=== PATIENT | female | born 1995 | race Two or more races ===

== ENCOUNTER 2017-09-15 23:08 | Observation (INO) | payer MEDICAID ==
[2017-09-16 01:12] LABS: APPEARANCE,URINE SLIGHTLY-CLOUDY; BILIRUBIN,URINE NEGATIVE (NEGATIVE); COLOR,URINE YELLOW; GLUCOSE, URINE NEGATIVE (NEGATIVE); KETONES,URINE 80 mg/dL (NEGATIVE); LEUKOCYTE ESTERASE,URINE NEGATIVE (NEGATIVE); NITRITE,URINE NEGATIVE (NEGATIVE); PROTEIN,URINE NEGATIVE (NEGATIVE); URINE SPECIFIC GRAVITY 1.023; UROBILINOGEN,URINE NEGATIVE mg/dL (<2.0)
[2017-09-16] MEDS ORDERED: RINGERS SOLUTION,LACTATED 1,000 ML IV ONE (01:33)
[2017-09-16 01:54] LABS: HEMATOCRIT 27.2 % (36.0-47.0); HEMOGLOBIN 8.5 g/dL (12.0-15.5); MEAN CORPUSCULAR HEMOGLOBIN 22.9 pg (27.0-33.4); MEAN CORPUSCULAR HGB CONC 31.4 g/dL (32.0-36.0); MEAN CORPUSCULAR VOLUME 73 fl (80-97); PLATELET COUNT 254 10^3/uL (150-450); RED BLOOD COUNT 3.73 10^6/uL (3.72-5.28); RED CELL DISTRIBUTION WIDTH 16.5 % (11.5-14.0); WHITE BLOOD COUNT 11.4 10^3/uL (4.0-10.5)
[2017-09-16 02:07] LABS: ALANINE AMINOTRANSFERASE 35 U/L (9-52); ALBUMIN 3.2 g/dL (3.5-5.0); ALKALINE PHOSPHATASE 106 U/L (38-126); ANION GAP 9 (5-19); ASPARTATE AMINO TRANSFERASE 29 U/L (14-36); BILIRUBIN,DIRECT 0.1 mg/dL (0.0-0.4); BILIRUBIN,TOTAL 0.4 mg/dL (0.2-1.3); BLOOD UREA NITROGEN 6 mg/dL (7-20); CALCIUM 8.7 mg/dL (8.4-10.2); CARBON DIOXIDE 19 mmol/L (22-30); CHLORIDE 107 mmol/L (98-107); GLUCOSE 94 mg/dL (75-110); POTASSIUM 3.7 mmol/L (3.6-5.0); TOTAL PROTEIN 5.9 g/dL (6.3-8.2)
[2017-09-16] MEDS ORDERED: ACETAMINOPHEN 325 MG TABLET ONE ×2 (02:25→06:21)
[2017-09-16] MEDS ORDERED: CEFAZOLIN INJ 1 GM VIAL ONE (02:26)
[2017-09-16] MEDS ORDERED: CEFTRIAXONE INJ 1000 MG VIAL IV ONE (02:27)
[2017-09-16 02:34] LABS: ABSOLUTE LYMPHOCYTES# (MANUAL) 0.3 10^3/uL (0.5-4.7); ABSOLUTE MONOCYTES # (MANUAL) 1.3 10^3/uL (0.1-1.4); ABSOLUTE NEUTROPHILS# (MANUAL) 9.8 10^3/uL (1.7-8.2); BAND NEUTROPHILS % (MANUAL) 4 % (3-5); BASOPHILS % (MANUAL) 0 % (0-2); EOSINOPHILS % (MANUAL) 0 % (0-6); LYMPHOCYTES % (MANUAL) 3 % (13-45); MONOCYTES % (MANUAL) 11 % (3-13); SEGMENTED NEUTROPHILS % (MAN) 82 % (42-78); TOTAL CELLS COUNTED 100
[2017-09-16] MEDS: ACETAMINOPHEN 325 MG TABLET PO PRN ×4 (02:35→17:26)
[2017-09-16 02:36] LABS: ANISOCYTOSIS 1+; HYPOCHROMASIA 1+; OVALOCYTES SLIGHT; POIKILOCYTOSIS SLIGHT; POLYCHROMASIA SLIGHT; TOXIC GRANULATION 2+
[2017-09-16 02:37] LABS: PLATELET COMMENT ADEQUATE
[2017-09-16] MEDS ORDERED: CEFAZOLIN 1 GM/D5W RTU 1 GM/50 ML RTUPB IV PRN (02:45)
[2017-09-16] MEDS ORDERED: GENTAMICIN SULFATE 90 MG in DEXTROSE 5%-WATER 100 ML IV ONE (02:45)
[2017-09-16] MEDS ORDERED: CEFTRIAXONE 1 GM/D5W RTU 1 GM/50 ML RTUPB IV ONE (03:00)
--- NOTE | 2017-09-16 03:18 | RADIOLOGY REPORT (SQ) ---
EXAM DESCRIPTION: U/S OB 14+ TA/1 GEST W/DOPPLER CLINICAL HISTORY: 22 years Female, and cramping COMPARISON: None. TECHNIQUE: Complete third trimester obstetrical ultrasound performed. FINDINGS: measurements: heart rate of 165 bpm. BPD: 8.69 cm compatible with estimated gestational age of 35 weeks, 1 day. HC: 31.01 compatible with estimated gestational age of 34 weeks, 5 days. AC: 32.96 cm compatible with estimated gestational age of 36 weeks, 6 days. FL: 6.46 cm compatible with estimated gestational age of 33 weeks, 2 days. Estimated gestational age is 35 weeks, 0 days. Estimated delivery date of 10/21/2017. Estimated weight of 2707 g, 6 lbs. 0 oz. Estimated weight 90th percentile. HC/AC: 0.94 which is slightly low. FL/BPD: 74.3 FL/AC: 20.8 FL/AC: 19.6 which is also low. PATRICK of 17.2. Placenta: Posterior presentation is breech. organ survey. Four-chamber heart, three-vessel cord, cord insertion, bladder, left kidney, and extremities are within normal limits. Visualized portions of the spine within normal limits however a 70 loop in the axial plane is not performed. Exclusion of spina bifida is not possible based on these images. The lateral ventricles, cerebellum, cisterna magna are not identified on this study. Mild dilatation of the right renal pelvis measuring 4.8 mm. Cervical length of 4.9 cm. IMPRESSION: 1. Single live intrauterine in breech presentation with estimated gestational age of 35 weeks, 0 days. heart rate of 165 bpm. 2. Mild right renal pelviectasis without other definite evidence of obstruction. Continued follow-up recommended. 3. The intracranial measurement are not well evaluated on this study. 4. Mildly low HC/AC ratio and FL/AC ratio. Continued follow-up recommended. 5. PATRICK of 17.2. This is upper limits of normal.
[2017-09-16] MEDS ORDERED: CEFTRIAXONE INJ 1000 MG VIAL ONE (03:29)
[2017-09-16] MEDS ORDERED: GENTAMICIN SULFATE INJ 80 MG/2 ML VIAL IV SCH (04:00)
[2017-09-16] MEDS ORDERED: GENTAMICIN SULFATE INJ 80 MG/2 ML VIAL ONE (04:13)
[2017-09-16] MEDS ORDERED: CEFTRIAXONE INJ 1000 MG VIAL IM SCH (06:00)
--- NOTE | 2017-09-16 06:49 | Non Stress Test Report ---
Non Stress Test Datetime Report Generated by CPN: 09/16/2017 06:49 DEMOGRAPHIC EGA NST: 32.1 INDICATION Indication for Study: Pyelonephritis Indication for Study (NST) Other: ? pyeloneohritis URINE RESULTS Urine Protein, NST: Negative Urine Ketones - NST: Positive Urine Glucose - NST: Negative Urine Blood - NST: Negative MONITORING Monitor Explained: Monitor Explained; Test Explained; Patient Verbalized Understanding Time on Monitor: 09/16/2017 05:55 Time off Monitor: 09/16/2017 06:35 NST Duration: 40 NST INTERVENTIONS NST Interventions: PO Hydration; IV Fluids; Reposition Patient Physician Notified NST: Dr. Trimble BABY A: [id number] BABY A Movement : Present Contraction Frequency : none noted FHR Baseline : 145 Accelerations : 15X15 Decelerations : None Variability : Moderate 6-25bpm NST Review: Meets Criteria for Reactive NST NST Review and Verified By : [employer] NST Results: Reactive NST REPORT Report Trigger: Send Report
[2017-09-16] MEDS: RINGERS SOLUTION,LACTATED 1,000 ML IV PRN (06:52)
--- NOTE | 2017-09-16 08:16 | L&D Progress Notes ---
PROGRESS NOTES Datetime Report Generated by CPN: 09/16/2017 08:16 PROGRESS NOTE Impression Other: IUP at 32+ weeks. Pyelonephritis/Maternal pyrexia Plan: Continue Present Management Comment: IUP at 32+ weeks. Afebrile this morning. Pain improved. Sleeping comfortably. Awaiting culture results. Continue on IV antibiotics. Plan on transition to PO antibiotics and discharge planning. SIGNATURE SIGNATURE: [id number] SIGNATURE: [id number] Signature: with User ID: [email or web address]
--- NOTE | 2017-09-16 09:55 | PDOC H&P ---
History of Present Illness Admission Date/PCP: 09/16/17 02:28 AKASH LEWIS MD Patient complains of: c/o nausea and vomiting and back pain, brought in by EMS, 26+1 History of Present Illness: TRENT CLAROS is a 22 year old female Past Medical History Gynecological Infection: No 1 Baby 1 Male Year: 2,016 Weeks: 40 Weight: 4.536 kg Delivery: : Low Cervical, Transverse 1 Baby 2 Male Year: 2,014 Weeks: 40 Weight: 2.722 kg Delivery: Spontaneous Vaginal Delivery Past Surgical History Past Surgical History: Reports: None, Section Social History Information Source: Patient Lives with: Family Smoking Status: Never Smoker Frequency of Alcohol Use: None Hx Recreational Drug Use: No Hx Prescription Drug Abuse: No Family History Family History: None Parental Family History Reviewed: Yes Children Family History Reviewed: Yes Sibling(s) Family History Reviewed.: Yes Medication/Allergy Home Medications: No Home Medications 09/16/17 Allergies/Adverse Reactions: No Known Allergies Allergy (Verified 09/16/17 01:59) Physical Exam - Physical Exam Vital Signs: Intake & Output 09/15/17 09/16/17 09/17/17 06:59 06:59 06:59 Weight 127.4 kg General appearance: PRESENT: no acute distress Result Laboratory Results: 09/16/17 01:38 09/16/17 01:38 09/16/17 09/16/17 09/16/17 00:45 01:38 01:38 WBC 11.4 H RBC 3.73 Hgb 8.5 L Hct 27.2 L MCV 73 L MCH 22.9 L MCHC 31.4 L RDW 16.5 H Plt Count 254 Seg Neutrophils % Not Reportable Lymphocytes % Not Reportable Monocytes % Not Reportable Eosinophils % Not Reportable Basophils % Not Reportable Absolute Neutrophils Not Reportable Absolute Lymphocytes Not Reportable Absolute Monocytes Not Reportable Absolute Eosinophils Not Reportable Absolute Basophils Not Reportable Sodium 135.0 L Potassium 3.7 Chloride 107 Carbon Dioxide 19 L Anion Gap 9 BUN 6 L Creatinine 0.50 L Est GFR ( Amer) > 60 Est GFR (Non-Af Amer) > 60 Glucose 94 Calcium 8.7 Total Bilirubin 0.4 AST 29 ALT 35 Alkaline Phosphatase 106 Total Protein 5.9 L Albumin 3.2 L Urine Color YELLOW Urine Appearance SLIGHTLY-CLOUDY Urine pH 6.0 Ur Specific [place] 1.023 Urine Protein NEGATIVE Urine Glucose (UA) NEGATIVE Urine Ketones 80 H Urine Blood NEGATIVE Urine Nitrite NEGATIVE Ur Leukocyte Esterase NEGATIVE Urine WBC (Auto) 0 Urine RBC (Auto) 0 Impressions: Obstetrics Ultrasound 09/16/17 00:00 IMPRESSION: 1. Single live intrauterine in breech presentation with estimated gestational age of 35 weeks, 0 days. heart rate of 165 bpm. 2. Mild right renal pelviectasis without other definite evidence of obstruction. Continued follow-up recommended. 3. The intracranial measurement are not well evaluated on this study. 4. Mildly low HC/AC ratio and FL/AC ratio. Continued follow-up recommended. 5. PATRICK of 17.2. This is upper limits of normal. Assessment & Plan - Diagnosis (1) Pyelonephritis affecting in second trimester Is this a current diagnosis for this admission?: Yes - Plan Summary Plan Summary: observation, antibiotics
[2017-09-16] MEDS: CEFAZOLIN 1 GM/D5W RTU 1 GM/50 ML RTUPB IV SCH ×3 (12:15→23:17)
[2017-09-17 04:17] VITALS: BP 127/65
[2017-09-17] MEDS: CEFAZOLIN 1 GM/D5W RTU 1 GM/50 ML RTUPB IV SCH (06:10)
[2017-09-17] MEDS: RINGERS SOLUTION,LACTATED 1,000 ML IV PRN (06:10)
--- NOTE | 2017-09-17 08:28 | PDOC PROGRESS REPORT ---
Subjective Progress Note for:: 09/17/17 Subjective:: pt feels better but has a cold Reason For Visit: LABOR CHECK/ Physical Exam - Physical Exam Vital Signs: Temp Pulse Resp BP Pulse Ox 98.2 F 110 H 18 127/65 H 100 09/17/17 04:48 09/17/17 04:48 09/17/17 04:48 09/17/17 04:48 09/17/17 04:48 Intake & Output 09/16/17 09/17/17 09/18/17 06:59 06:59 06:59 Intake Total 1240 Output Total 450 Balance 790 Weight 127.4 kg General appearance: PRESENT: no acute distress Respiratory exam: PRESENT: clear to auscultation irena GI/Abdominal exam: PRESENT: soft Neurological exam: PRESENT: alert Result Laboratory Results: 09/16/17 01:38 09/16/17 01:38 Impressions: Obstetrics Ultrasound 09/16/17 00:00 IMPRESSION: 1. Single live intrauterine in breech presentation with estimated gestational age of 35 weeks, 0 days. heart rate of 165 bpm. 2. Mild right renal pelviectasis without other definite evidence of obstruction. Continued follow-up recommended. 3. The intracranial measurement are not well evaluated on this study. 4. Mildly low HC/AC ratio and FL/AC ratio. Continued follow-up recommended. 5. PATRICK of 17.2. This is upper limits of normal. Assessment & Plan - Diagnosis (1) Pyelonephritis affecting in second trimester Is this a current diagnosis for this admission?: Yes - Plan Summary Plan Summary: d/c f/u regular appointment or prn home antibiotics
== END 2017-09-17 10:35 | disposition home or self-care (01) ==
LOC: LC 09-16 00:47 → LR 09-16 02:28 → 2S 09-16 09:07
PROVIDERS: ADMIT Obstetrics & Gynecology Gynecology; ATTEND Obstetrics & Gynecology Gynecology
PROC: 4A0HXCZ Measurement of Products of Conception, Cardiac Rate, External Approach (ICD-10-PCS; principal; 2017-09-16)
DX: O23.02 Infections of kidney in pregnancy, second trimester (principal); Z3A.26 26 weeks gestation of pregnancy; O32.1XX0 Maternal care for breech presentation, not applicable or unspecified
CPT/HCPCS: 59025; 36415; 87086; 85025; 80053; 81001; 76805; 93976; G0378 ×2; J3490; J0690 ×3; J1580; J0696; J7120

== ENCOUNTER 2017-11-02 10:57 | Outpatient (CLI) | payer MEDICAID ==
[~2017-11-02 10:57] MED LIST: ACETAMINOPHEN 325 MG TABLET PO PRN; DIPHENHYDRAMINE HCL 50 MG/ML VIAL IV PRN; IRON DEXTRAN COMPLEX 25 MG in SYRINGE, DISPOSABLE, 1 EACH IV PRN; IRON DEXTRAN COMPLEX 975 MG in NORMAL SALINE 1000 ML 1,000 ML IV PRN; NORMAL SALINE 250 ML IV PRN
[2017-11-02 11:50] VITALS: BP 142/56
== END 2017-11-02 16:58 | disposition home or self-care (01) ==
LOC: II 10:57 → 5TH 11:01 → II 16:58
PROVIDERS: ATTEND Internal Medicine Hematology & Oncology
PROC: 3E033GC Introduction of Other Therapeutic Substance into Peripheral Vein, Percutaneous Approach (ICD-10-PCS; principal; 2017-11-02)
DX: O99.013 Anemia complicating pregnancy, third trimester (principal); D64.9 Anemia, unspecified
CPT/HCPCS: 96365; 96366; 96374; 96375; J3490 ×2; J1200; J1750; J7030

== ENCOUNTER 2017-12-21 21:15 | Emergency (ER) | payer MEDICAID ==
[2017-12-21 22:33] LABS: ABSOLUTE EOSINOPHILS # (AUTO) 0.1 10^3/uL (0.0-0.6); ABSOLUTE LYMPHOCYTES (AUTO) 1.4 10^3/uL (0.5-4.7); ABSOLUTE MONOCYTES (AUTO) 0.4 10^3/uL (0.1-1.4); ABSOLUTE NEUT (AUTO) 7.3 10^3/uL (1.7-8.2); BASOPHILS % (AUTO) 0.3 % (0-2); EOSINOPHILS % (AUTO) 1.2 % (0-6); HEMATOCRIT 36.8 % (36.0-47.0); HEMOGLOBIN 11.8 g/dL (12.0-15.5); LYMPHOCYTES % (AUTO) 14.8 % (13-45); MEAN CORPUSCULAR HEMOGLOBIN 25.1 pg (27.0-33.4); MEAN CORPUSCULAR HGB CONC 32.1 g/dL (32.0-36.0); MEAN CORPUSCULAR VOLUME 78 fl (80-97); MONOCYTES % (AUTO) 4.7 % (3-13); PLATELET COUNT 265 10^3/uL (150-450); TOTAL CELLS COUNTED % (AUTO) 100 %; WHITE BLOOD COUNT 9.2 10^3/uL (4.0-10.5)
[2017-12-21 22:43] LABS: APPEARANCE,URINE CLOUDY; BILIRUBIN,URINE NEGATIVE (NEGATIVE); COLOR,URINE YELLOW; GLUCOSE, URINE NEGATIVE (NEGATIVE); KETONES,URINE NEGATIVE (NEGATIVE); LEUKOCYTE ESTERASE,URINE TRACE (NEGATIVE); NITRITE,URINE NEGATIVE (NEGATIVE); PROTEIN,URINE 30 mg/dL (NEGATIVE); URINE SPECIFIC GRAVITY 1.027; UROBILINOGEN,URINE NEGATIVE mg/dL (<2.0)
[2017-12-21 22:49] LABS: ALANINE AMINOTRANSFERASE 24 U/L (9-52); ALBUMIN 4.4 g/dL (3.5-5.0); ALKALINE PHOSPHATASE 77 U/L (38-126); ANION GAP 13 (5-19); ASPARTATE AMINO TRANSFERASE 19 U/L (14-36); BILIRUBIN,DIRECT 0.2 mg/dL (0.0-0.4); BILIRUBIN,TOTAL 0.3 mg/dL (0.2-1.3); BLOOD UREA NITROGEN 15 mg/dL (7-20); CALCIUM 9.4 mg/dL (8.4-10.2); CARBON DIOXIDE 25 mmol/L (22-30); CHLORIDE 104 mmol/L (98-107); GLUCOSE 98 mg/dL (75-110); POTASSIUM 3.7 mmol/L (3.6-5.0); SODIUM 142.2 mmol/L (137-145); TOTAL PROTEIN 7.4 g/dL (6.3-8.2)
[2017-12-21 22:54] LABS: ANISOCYTOSIS 3+; HYPOCHROMASIA SLIGHT; OVALOCYTES SLIGHT; PLATELET COMMENT ADEQUATE; POIKILOCYTOSIS 1+; TOXIC GRANULATION SLIGHT
[2017-12-22] MEDS ORDERED: ONDANSETRON HCL INJ/PF 4 MG/2 ML SDV IV ONE (00:14)
--- NOTE | 2017-12-22 00:15 | ER Document Report ---
ED General - General Chief Complaint: Nausea/Vomiting/Diarrhea Stated Complaint: VOMITING Time Seen by Provider: 12/21/17 23:43 Notes: Patient is a 22-year-old female presents with complaint of vomiting and diarrhea. She says she has had intermittent mild crampy abdominal pain. She said that she did just recently start her menstrual period. She had an incident 1 month ago. She is not currently breast-feeding. No fevers. No dysuria. No recent sick contacts. No recent antibiotic usage. No travel outside the country. No other complaints at this time. TRAVEL OUTSIDE OF THE [place] IN LAST 30 DAYS: No - Related Data Allergies/Adverse Reactions: No Known Allergies Allergy (Verified 09/16/17 01:59) Past Medical History - Social History Smoking Status: Never Smoker Chew tobacco use (# tins/day): No Frequency of alcohol use: None Drug Abuse: None Family History: None Patient has suicidal ideation: No Patient has homicidal ideation: No Renal/ Medical History: Denies: Hx Peritoneal Dialysis Past Surgical History: Reports: Hx Section - x2 Review of Systems - Review of Systems Notes: My Normal Review Basic REVIEW OF SYSTEMS: CONSTITUTIONAL : Denies fever, chills, or sweats. Denies recent illness. RESPIRATORY: Denies cough, cold, or chest congestion. Denies shortness of breath, difficulty breathing, or wheezing. GASTROINTESTINAL: Intermittent crampy abdominal pain. Some vomiting. Some diarrhea. Blood in stool. GENITOURINARY: Denies difficulty urinating, painful urination, burning, frequency, or blood in urine. FEMALE GENITOURINARY: no abnormal or irregular periods. LMP: Currently on menstrual period. MUSCULOSKELETAL: Denies neck or back pain or joint pain or swelling. SKIN: Denies rash or skin lesions. NEUROLOGICAL: Denies altered mental status or loss of consciousness. Denies headache. Denies weakness or paralysis or loss of use of either side. Denies problems with gait or speech. Denies sensory or motor loss. ALL OTHER SYSTEMS REVIEWED AND NEGATIVE. Physical Exam - Vital signs Vitals: Temp Pulse Resp BP Pulse Ox 99 F 128 H 18 134/85 H 98 12/21/17 21:15 12/21/17 21:15 12/21/17 21:15 12/21/17 21:15 12/21/17 21:15 - Notes Notes: General Appearance: Well nourished, alert, cooperative, no acute distress, no obvious discomfort. Vitals: reviewed, See vital signs table. Eyes: PERRL, EOMI, Conjuctiva clear Mouth: decreasd moisture Throat: No tonsillar inflammation, No airway obstruction, No lymphadenopathy Lungs: No wheezing, No rales, No rhonci, No accessory muscle use, good air exchange bilaterally. Heart: tachycardiac l rate, Regular rythm, No murmur, no rub Abdomen: Normal BS, soft, No rigidity, No abdominal tenderness, No guarding, no rebound, Extremities: strength 5/5 in all extremities, good pulses in all extremities, no swelling or tenderness in the extremities, no edema. Skin: warm, dry, appropriate color, no rash Neuro: speech clear, oriented x 3, normal affect, responds appropriately to questions. Course - Re-evaluation Re-evalutation: 12/22/17 02:24 After the IV fluids and Zofran patient is feeling improved. She says she no longer feels nauseous. We will recheck her vital signs and make sure heart rate has improved. 12/22/17 05:37 Patient's vital signs have improved. She looks and feels well. She will be discharged home. I encouraged her return to ER immediately if she has recurrent vomiting and diarrhea, fevers, any abdominal pain, or if she feels unwell. Patient agrees with plan and will be discharged home. Dictation of this chart was performed using voice recognition software; therefore, there may be some unintended grammatical errors. - Vital Signs Vital signs: Temp Pulse Resp BP Pulse Ox 98.5 F 93 20 126/68 H 99 12/22/17 02:45 12/22/17 02:45 12/22/17 02:45 12/22/17 02:45 12/22/17 02:45 - Laboratory Result Diagrams: 12/21/17 22:15 12/21/17 22:15 Laboratory results interpreted by me: 12/21/17 12/21/17 22:15 22:15 Hgb 11.8 L MCV 78 L MCH 25.1 L RDW 24.0 H Seg Neutrophils % 79.0 H Urine Protein 30 H Urine Blood LARGE H Ur Leukocyte Esterase TRACE H Discharge - Discharge Clinical Impression: Vomiting and diarrhea Disposition: HOME, SELF-CARE Additional Instructions: Please take the Zofran as 1 tab every 4 hours as needed for nausea and vomiting. Please eat a very bland diet over the next 48 hours and drink plenty of non-caffeinated liquids. please follow up with your doctor in 1-2 days for reevaluation or return to the ER for revaluation if you continue to have symptoms after 48 hours. Return to the ER immediately if you have fevers, abdominal pain, intractable vomiting, or bloody stools. Prescriptions: Ondansetron [Zofran Odt 4 mg Tablet] 1 tab PO Q4H PRN #15 tab.rapdis PRN Reason: For Nausea/Vomiting Forms: Return to Work
[2017-12-22] MEDS: NORMAL SALINE 1000 ML 1,000 ML IV PRN ×2 (00:47→02:42)
[2017-12-22] MEDS ORDERED: ONDANSETRON 4 MG TAB.RAPDIS PO ONE (02:24)
[2017-12-22 02:52] VITALS: BP 126/68
== END 2017-12-22 03:12 | disposition home or self-care (01) ==
LOC: ER 21:15
DX: R11.2 Nausea with vomiting, unspecified (principal); R19.7 Diarrhea, unspecified
CPT/HCPCS: 99284; 96361; 96374; 36415; 83735; 84703; 85025; 80053; 81001; S0119; J2405; J7030

== ENCOUNTER 2019-05-07 00:08 | Emergency (ER) | payer MEDICAID ==
[2019-05-07 01:22] LABS: ABSOLUTE EOSINOPHILS # (AUTO) 0.2 10^3/uL (0.0-0.6); ABSOLUTE LYMPHOCYTES (AUTO) 1.2 10^3/uL (0.5-4.7); ABSOLUTE MONOCYTES (AUTO) 0.6 10^3/uL (0.1-1.4); ABSOLUTE NEUT (AUTO) 5.3 10^3/uL (1.7-8.2); BASOPHILS % (AUTO) 0.5 % (0-2); EOSINOPHILS % (AUTO) 2.1 % (0-6); HEMATOCRIT 39.9 % (36.0-47.0); HEMOGLOBIN 13.2 g/dL (12.0-15.5); LYMPHOCYTES % (AUTO) 16.1 % (13-45); MEAN CORPUSCULAR HEMOGLOBIN 27.7 pg (27.0-33.4); MEAN CORPUSCULAR HGB CONC 32.9 g/dL (32.0-36.0); MEAN CORPUSCULAR VOLUME 84 fl (80-97); PLATELET COUNT 251 10^3/uL (150-450); RED BLOOD COUNT 4.75 10^6/uL (3.72-5.28); RED CELL DISTRIBUTION WIDTH 13.4 % (11.5-14.0); SEGMENTED NEUTROPHILS % (AUTO) 73.3 % (42-78); TOTAL CELLS COUNTED % (AUTO) 100 %; WHITE BLOOD COUNT 7.3 10^3/uL (4.0-10.5)
[2019-05-07 01:33] LABS: COLOR,URINE STRAW; URINE SPECIFIC GRAVITY 1.021
[2019-05-07 01:34] LABS: APPEARANCE,URINE CLEAR; BILIRUBIN,URINE NEGATIVE (NEGATIVE); GLUCOSE, URINE NEGATIVE (NEGATIVE); KETONES,URINE NEGATIVE (NEGATIVE); LEUKOCYTE ESTERASE,URINE NEGATIVE (NEGATIVE); NITRITE,URINE NEGATIVE (NEGATIVE); PROTEIN,URINE NEGATIVE (NEGATIVE); UROBILINOGEN,URINE NEGATIVE mg/dL (<2.0)
[2019-05-07 01:39] LABS: ALBUMIN 4.4 g/dL (3.5-5.0); ALKALINE PHOSPHATASE 82 U/L (38-126); ANION GAP 9 (5-19); ASPARTATE AMINO TRANSFERASE 22 U/L (14-36); BILIRUBIN,DIRECT 0.1 mg/dL (0.0-0.4); BILIRUBIN,TOTAL 0.4 mg/dL (0.2-1.3); BLOOD UREA NITROGEN 13 mg/dL (7-20); CALCIUM 9.3 mg/dL (8.4-10.2); CARBON DIOXIDE 27 mmol/L (22-30); CHLORIDE 102 mmol/L (98-107); GLUCOSE 104 mg/dL (75-110); POTASSIUM 3.8 mmol/L (3.6-5.0); TOTAL PROTEIN 7.2 g/dL (6.3-8.2)
[2019-05-07] MEDS ORDERED: ACETAMINOPHEN 325 MG TABLET PO ONE (02:45)
[2019-05-07] MEDS ORDERED: MAG HYDROX/AL HYDROX/SIMETH SUSP 30 ML UDCUP PO ONE (04:31)
[2019-05-07] MEDS ORDERED: LIDOCAINE 2% VISCOUS SOLN 20 ML UDCUP PO ONE (04:31)
[2019-05-07] MEDS ORDERED: METOCLOPRAMIDE HCL ORAL SOLN 10 MG/10 ML UDCUP PO ONE (04:31)
--- NOTE | 2019-05-07 04:34 | ER Document Report ---
ED GI/ - General Chief Complaint: Abdominal Pain Stated Complaint: ABDOMINAL PAIN Time Seen by Provider: 05/07/19 03:20 Notes: Patient is a 23-year-old female presents to the emergency department for epigastric abdominal pain for the last 24 hours. Patient states she did vomit over 3 times and has had over 5 episodes of diarrhea. Patient's denying any blood in either her emesis or stool. Patient's denying any fevers, dysuria, vaginal discharge. Patient denies any medical problems, denies taking any daily medications, denies any allergies, last menstrual cycle 03/23/2019 Patient voices she was initially also complaining of a generalized headache. medical staff coordinator has used protocol and given the patient Tylenol, upon my assessment patient states she no longer has a headache. TRAVEL OUTSIDE OF THE [place] IN LAST 30 DAYS: No - Related Data Allergies/Adverse Reactions: iron Allergy (Verified 05/07/19 03:07) Past Medical History - General Information source: Patient - Social History Smoking Status: Never Smoker Frequency of alcohol use: None Drug Abuse: None Family History: None Patient has suicidal ideation: No Patient has homicidal ideation: No Renal/ Medical History: Denies: Hx Peritoneal Dialysis Past Surgical History: Reports: Hx Section - x2 Review of Systems - Review of Systems Constitutional: denies: Fever EENT: No symptoms reported Cardiovascular: No symptoms reported Respiratory: No symptoms reported Gastrointestinal: See HPI Genitourinary: No symptoms reported Female Genitourinary: No symptoms reported Musculoskeletal: No symptoms reported Skin: No symptoms reported Hematologic/Lymphatic: No symptoms reported Neurological/Psychological: See HPI Physical Exam - Vital signs Vitals: Temp Pulse Resp BP Pulse Ox 98.1 F 93 22 H 141/93 H 97 05/07/19 00:35 05/07/19 00:35 05/07/19 00:35 05/07/19 00:35 05/07/19 00:35 - Notes Notes: GENERAL: Alert, interacts well. No acute distress. HEAD: Normocephalic, atraumatic. EYES: Pupils equal, round, and reactive to light. Extraocular movements intact. ENT: Oral mucosa moist, tongue midline. NECK: Full range of motion. Supple. Trachea midline. LUNGS: Clear to auscultation bilaterally, no wheezes, rales, or rhonchi. No respiratory distress. HEART: Regular rate and rhythm. No murmur ABDOMEN: Soft, right upper quadrant abdominal pain noted, epigastric abdominal pain noted. Non-distended. Bowel sounds present in all 4 quadrants. No right lower abdominal pain noted, no left upper or lower abdominal pain noted. EXTREMITIES: Moves all 4 extremities spontaneously. No edema, normal radial and dorsalis pedis pulses bilaterally. No cyanosis. BACK: no cervical, thoracic, lumbar midline tenderness. No saddle anesthesia, normal distal neurovascular exam. No CVA tenderness noted bilaterally. NEUROLOGICAL: Alert and oriented x3. Normal speech. cranial nerves II through XII grossly intact. PSYCH: Normal affect, normal mood. SKIN: Warm, dry, normal turgor. No rashes or lesions noted. Course - Re-evaluation Re-evalutation: 05/07/19 06:08 Laboratory 05/07/19 05/07/19 05/07/19 00:14 00:14 01:10 WBC 7.3 RBC 4.75 Hgb 13.2 Hct 39.9 MCV 84 MCH 27.7 MCHC 32.9 RDW 13.4 Plt Count 251 Lymph % (Auto) 16.1 Major % (Auto) 8.0 Eos % (Auto) 2.1 Baso % (Auto) 0.5 Absolute Neuts (auto) 5.3 Absolute Lymphs (auto) 1.2 Absolute Monos (auto) 0.6 Absolute Eos (auto) 0.2 Absolute Basos (auto) 0.0 Seg Neutrophils % 73.3 Sodium Potassium Chloride Carbon Dioxide Anion Gap BUN Creatinine Est GFR ( Amer) Est GFR (MDRD) Non-Af Glucose Calcium Total Bilirubin Direct Bilirubin Neonat Total Bilirubin Neonat Direct Bilirubin Neonat Indirect Bili AST ALT Alkaline Phosphatase Total Protein Albumin Lipase Urine Color STRAW Urine Appearance CLEAR Urine pH 6.0 Ur Specific [place] 1.021 Urine Protein NEGATIVE Urine Glucose (UA) NEGATIVE Urine Ketones NEGATIVE Urine Blood NEGATIVE Urine Nitrite NEGATIVE Urine Bilirubin NEGATIVE Urine Urobilinogen NEGATIVE Ur Leukocyte Esterase NEGATIVE Urine WBC (Auto) 1 Urine RBC (Auto) 1 Squamous Epi Cells Auto 9 Urine Mucus (Auto) MANY Urine Ascorbic Acid NEGATIVE Urine HCG, Qual NEGATIVE 05/07/19 01:10 WBC RBC Hgb Hct MCV MCH MCHC RDW Plt Count Lymph % (Auto) Major % (Auto) Eos % (Auto) Baso % (Auto) Absolute Neuts (auto) Absolute Lymphs (auto) Absolute Monos (auto) Absolute Eos (auto) Absolute Basos (auto) Seg Neutrophils % Sodium 137.7 Potassium 3.8 Chloride 102 Carbon Dioxide 27 Anion Gap 9 BUN 13 Creatinine 0.59 Est GFR ( Amer) > 60 Est GFR (MDRD) Non-Af > 60 Glucose 104 Calcium 9.3 Total Bilirubin 0.4 Direct Bilirubin 0.1 Neonat Total Bilirubin Not Reportable Neonat Direct Bilirubin Not Reportable Neonat Indirect Bili Not Reportable AST 22 ALT 23 Alkaline Phosphatase 82 Total Protein 7.2 Albumin 4.4 Lipase 39.4 Urine Color Urine Appearance Urine pH Ur Specific [place] Urine Protein Urine Glucose (UA) Urine Ketones Urine Blood Urine Nitrite Urine Bilirubin Urine Urobilinogen Ur Leukocyte Esterase Urine WBC (Auto) Urine RBC (Auto) Squamous Epi Cells Auto Urine Mucus (Auto) Urine Ascorbic Acid Urine HCG, Qual Abdomen Ultrasound 05/07/19 04:31 IMPRESSION: Fatty liver. Sludge/stones in the gallbladder lumen. 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 Patient's ultrasound is noted as above. I have discussed following up with outpatient surgery. At this time will discharge with return precautions and follow-up recommendations. Verbal discharge instructions given a the bedside and opportunity for questions given. Medication warnings reviewed. Patient is in agreement with this plan and has verbalized understanding of return precautions and the need for primary care follow-up in the next 24-72 hours. This medical record was dictated with voice recognizing software. There may be grammatical, syntax errors that are unintended. - Vital Signs Vital signs: Temp Pulse Resp BP Pulse Ox 98.1 F 93 22 H 141/93 H 97 05/07/19 00:35 05/07/19 00:35 05/07/19 00:35 05/07/19 00:35 05/07/19 00:35 - Laboratory Result Diagrams: 05/07/19 01:10 05/07/19 01:10 Discharge - Discharge Clinical Impression: Gastritis Qualifiers: Gastritis type: unspecified gastritis Chronicity: acute Gastritis bleeding: without bleeding Qualified Code(s): K29.00 - Acute gastritis without bleeding Cholelithiasis Qualifiers: Cholelithiasis location: gallbladder Cholecystitis presence: without cholecystitis Biliary obstruction: without biliary obstruction Qualified Code(s): K80.20 - Calculus of gallbladder without cholecystitis without obstruction Condition: Stable Disposition: HOME, SELF-CARE Instructions: Gallbladder Disease ([facility]), Gastritis ([facility]) Additional Instructions: As we discussed you have been seen and treated in the emergency department for gastritis and stones in your gallbladder. Please take medications as prescribed. Please also make sure you follow-up with your primary care provider or surgery for elective removal of your gallbladder. Phone numbers will be provided in this packet. Please return to the emergency department should you have fever, increased abdominal pain, uncontrolled nausea or vomiting. Prescriptions: Famotidine [Pepcid 40 mg Tablet] 40 mg PO BID #60 tablet Ondansetron [Zofran Odt 4 mg Tablet] 1 - 2 tab PO Q6 PRN #10 tab.rapdis PRN Reason: For Nausea/Vomiting Referrals: KAMRON ORR MD [ACTIVE STAFF] - Follow up as needed
--- NOTE | 2019-05-07 05:58 | RADIOLOGY REPORT (SQ) ---
EXAM DESCRIPTION: US ABDOMEN LIMITED COMPLETED DATE/TME: 05/07/2019 04:31 CLINICAL HISTORY: 23 years, Female, pain COMPARISON: None. TECHNIQUE: Limited right upper quadrant ultrasound LIMITATIONS: None. FINDINGS: Echogenic appearance to the liver consistent with fatty infiltrative change. Sludge and stones in the gallbladder lumen. No gallbladder wall thickening or pericholecystic fluid. The CBD measures 2.2 mm. Right kidney is not well seen. Possible malrotation. Pancreas not well-seen due to bowel gas. Abdominal aorta inferior vena cava grossly unremarkable. No ascites IMPRESSION: Fatty liver. Sludge/stones in the gallbladder lumen. 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
[2019-05-07 06:24] VITALS: BP 135/78
== END 2019-05-07 06:24 | disposition home or self-care (01) ==
LOC: ER 00:08
DX: K29.00 Acute gastritis without bleeding (principal); K80.20 Calculus of gallbladder without cholecystitis without obstruction; K76.0 Fatty (change of) liver, not elsewhere classified; R10.13 Epigastric pain; R10.11 Right upper quadrant pain; R19.7 Diarrhea, unspecified; R11.10 Vomiting, unspecified; R51 Headache; Z88.8 Allergy status to other drugs, medicaments and biological substances
CPT/HCPCS: 36415; 83690; 85025; 81025; 80053; 81001; 76705; J3490 ×4; 99284

== ENCOUNTER 2020-04-04 17:20 | Emergency (ER) | payer SELFPAY ==
[2020-04-04 18:56] LABS: ABSOLUTE BASOPHILS # (AUTO) 0.1 10^3/uL (0.0-0.2); ABSOLUTE EOSINOPHILS # (AUTO) 0.3 10^3/uL (0.0-0.6); ABSOLUTE MONOCYTES (AUTO) 0.5 10^3/uL (0.1-1.4); ABSOLUTE NEUT (AUTO) 3.7 10^3/uL (1.7-8.2); BASOPHILS % (AUTO) 0.8 % (0-2); EOSINOPHILS % (AUTO) 5.1 % (0-6); HEMATOCRIT 39.1 % (36.0-47.0); HEMOGLOBIN 13.4 g/dL (12.0-15.5); LYMPHOCYTES % (AUTO) 30.3 % (13-45); MEAN CORPUSCULAR HEMOGLOBIN 29.3 pg (27.0-33.4); MEAN CORPUSCULAR HGB CONC 34.4 g/dL (32.0-36.0); MEAN CORPUSCULAR VOLUME 85 fl (80-97); MONOCYTES % (AUTO) 7.3 % (3-13); PLATELET COUNT 281 10^3/uL (150-450); RED BLOOD COUNT 4.58 10^6/uL (3.72-5.28); RED CELL DISTRIBUTION WIDTH 13.4 % (11.5-14.0); SEGMENTED NEUTROPHILS % (AUTO) 56.5 % (42-78); TOTAL CELLS COUNTED % (AUTO) 100 %; WHITE BLOOD COUNT 6.5 10^3/uL (4.0-10.5)
[2020-04-04 19:02] LABS: APPEARANCE,URINE SLIGHTLY-CLOUDY; BILIRUBIN,URINE NEGATIVE (NEGATIVE); COLOR,URINE YELLOW; GLUCOSE, URINE NEGATIVE (NEGATIVE); KETONES,URINE NEGATIVE (NEGATIVE); LEUKOCYTE ESTERASE,URINE NEGATIVE (NEGATIVE); NITRITE,URINE NEGATIVE (NEGATIVE); PROTEIN,URINE NEGATIVE (NEGATIVE); URINE SPECIFIC GRAVITY 1.025; UROBILINOGEN,URINE NEGATIVE mg/dL (<2.0)
--- NOTE | 2020-04-04 19:02 | ER Document Report ---
ED General - General Chief Complaint: Shortness Of Breath Stated Complaint: DIFFICULTY BREATHING Time Seen by Provider: 04/04/20 18:14 Primary Care Provider: NELY NORMAN MD [COMMUNITY BASED STAFF] - Follow up as needed Mode of Arrival: Ambulatory Information source: Patient Notes: 24-year-old female past medical history significant for anemia presents to the emergency room complaining of general body aches and chest pain for the past 3 days. States she was nauseous and vomited once yesterday has not vomited since. One episode of diarrhea on . No diarrhea since. Travel to [place] on Monday of last week but did not have any COVID-19 exposure. No fevers. Eating and drinking normally. No medications for symptoms. Denies any trauma or injury to her chest. TRAVEL OUTSIDE OF THE [place] IN LAST 30 DAYS: No - Related Data Allergies/Adverse Reactions: iron Allergy (Verified 04/04/20 18:44) Past Medical History - General Information source: Patient - Social History Smoking Status: Never Smoker Frequency of alcohol use: None Drug Abuse: None Family History: Reviewed & Not Pertinent Patient has homicidal ideation: No Renal/ Medical History: Denies: Hx Peritoneal Dialysis Past Surgical History: Reports: Hx Section - x2 Review of Systems - Review of Systems Constitutional: No symptoms reported EENT: No symptoms reported Cardiovascular: Chest pain Respiratory: denies: Short of breath Gastrointestinal: Diarrhea, Nausea, Vomiting. denies: Abdominal pain, Constipation Genitourinary: No symptoms reported Musculoskeletal: Muscle pain Skin: No symptoms reported Neurological/Psychological: No symptoms reported -: Yes All other systems reviewed and negative Physical Exam - Vital signs Vitals: Temp Pulse Resp BP Pulse Ox 98.6 F 85 18 146/97 H 98 04/04/20 18:30 04/04/20 18:30 04/04/20 18:30 04/04/20 18:30 04/04/20 18:30 - Notes Notes: VITAL SIGNS: Within normal limits. GENERAL: No acute distress, non-toxic appearance. HEAD: Normal with no signs of head trauma. EYES: PERRLA, EOMI, conjunctiva normal, no discharge. EARS: Hearing grossly intact. NOSE: Normal. THROAT: Oropharynx is normal. NECK: Normal range of motion, no tenderness, supple, no lymphadenopathy, No chichi nopathy, no JVD. CHEST: Clear breath sounds bilaterally. No wheezes, rales, or rhonchi. Chest wall nontender to palpation. CARDIAC: Regular rate and rhythm. S1 and S2, without murmurs, gallops, or rubs. VASCULAR: No Edema. Peripheral pulses normal and equal in all extremities. ABDOMEN: Normal and soft with no tenderness, no masses or pulsatile masses. GASTROINTESTINAL: Bowel sounds normal GENITOURINARY: Normal, No tenderness LYMPATHTIC: No lymphadenopathy noted. MUSCULOSKELETAL: Good range of motion of all major joints. Extremities without clubbing, cyanosis or edema. NEUROLOGICAL: Alert and oriented x 3. No focal sensory or strength deficits. Speech normal. Follows commands appropriately. PSYCHIATRIC: Normal Affect, judgement and mood. SKIN: Normal appearance with no rashes or lesions. Course - Re-evaluation Re-evalutation: 04/04/20 20:17 HEART Score: History 0 ECG 0 Age 0 Risk Factors 0 Troponin 0 Total: 0 Chest pain in a patient without evidence of cardiac or other serious etiology on workup today. I discussed with patient that, based on their age, risk factors and emergency department testing today, the likelihood that their symptoms are related to a heart attack is very low (estimated risk of heart attack or over the next 30 days of less than 1%). The patient demonstrates decision making capacity and has verbalized an understanding of these risks to me. Based on this, the patient has chosen to follow-up as an outpatient. Usual chest pain return precautions reviewed. The patient states understanding and agreement with this plan. 04/04/20 21:33 Patient is resting comfortably with decreased pain. All test results were reviewed with patient. Counseled on viral illness. Can take Tylenol and or Motrin as needed for pain. Outpatient follow-up with her primary care physician if not improving in 2 to 3 days. On-call physician was provided. Patient was given strict return to the emergency room guidelines. Return for any new or worsening symptoms. All questions were answered. Patient verbalized understanding and agrees with plan of care. - Vital Signs Vital signs: Temp Pulse Resp BP Pulse Ox 98.6 F 85 18 146/97 H 98 04/04/20 18:30 04/04/20 18:30 04/04/20 18:30 04/04/20 18:30 04/04/20 18:30 - Laboratory Result Diagrams: 04/04/20 18:30 04/04/20 18:30 Laboratory results interpreted by me: 04/04/20 18:30 Urine Blood MODERATE H - Diagnostic Test Radiology reviewed: Reports reviewed - EKG Interpretation by Me EKG shows normal: Sinus rhythm Rate: Normal Rhythm: NSR Additional EKG results interpreted by me: 04/04/20 19:01 EKG was interpreted by ED physician Dr. Lorenz No acute STEMI Normal sinus rhythm Rate [address] changes 04/04/20 19:02 Discharge - Discharge Clinical Impression: Chest pain of unknown etiology, Viral URI, Generalized body aches Condition: Stable Disposition: HOME, SELF-CARE Instructions: Chest Pain of Unclear Cause ([facility]), Viral Syndrome ([facility]) Additional Instructions: Tylenol and/or Motrin as needed for pain. Outpatient follow-up with a primary care physician as discussed. Return to the emergency room for any new or worsening symptoms. Referrals: NELY NORMAN MD [COMMUNITY BASED STAFF] - Follow up as needed
--- NOTE | 2020-04-04 19:19 | RADIOLOGY REPORT (SQ) ---
EXAM DESCRIPTION: CHEST SINGLE VIEW IMAGES COMPLETED DATE/TIME: 04/04/2020 7:10 pm REASON FOR STUDY: chest pain COMPARISON: None. TECHNIQUE: Single frontal radiographic view of the chest acquired. NUMBER OF VIEWS: One view. LIMITATIONS: None. FINDINGS: LUNGS AND PLEURA: No pneumothorax. No consolidation or pleural effusion. MEDIASTINUM AND HILAR STRUCTURES: No contour abnormalities. HEART AND VASCULAR STRUCTURES: Heart normal size. BONES: No acute findings. HARDWARE: None in the chest. OTHER: No other significant finding. IMPRESSION: NO ACUTE FINDINGS. TECHNICAL DOCUMENTATION: JOB ID: [id number] [place]-72 2010 [employer]- All Rights Reserved Reading location - IP/workstation name: [email or web address]
[2020-04-04 19:22] LABS: ALBUMIN 4.3 g/dL (3.5-5.0); ALKALINE PHOSPHATASE 62 U/L (38-126); ANION GAP 7 (5-19); ASPARTATE AMINO TRANSFERASE 24 U/L (14-36); BILIRUBIN,DIRECT 0.1 mg/dL (0.0-0.4); BILIRUBIN,TOTAL 0.4 mg/dL (0.2-1.3); BLOOD UREA NITROGEN 16 mg/dL (7-20); CALCIUM 8.9 mg/dL (8.4-10.2); CARBON DIOXIDE 27 mmol/L (22-30); CHLORIDE 105 mmol/L (98-107); CREATINE KINASE 79 U/L (30-135); GLUCOSE 94 mg/dL (75-110); POTASSIUM 4.3 mmol/L (3.6-5.0); TOTAL PROTEIN 7.4 g/dL (6.3-8.2)
[2020-04-04 19:34] LABS: CREATINE KINASE MB < 0.22 ng/mL (<4.55); TROPONIN I < 0.012 ng/mL
[2020-04-04] MEDS ORDERED: KETOROLAC TROMETHAMINE INJ/PF 30 MG/1 ML SDV IV ONE (20:16)
[2020-04-04 22:08] VITALS: BP 128/85
--- NOTE | 2020-04-04 23:15 | EKG REPORT ---
SEVERITY:- NORMAL ECG - SINUS RHYTHM : Confirmed by: Chi Koenig MD 04-Apr-2020 23:14:14
== END 2020-04-04 22:18 | disposition home or self-care (01) ==
LOC: ER 17:20
DX: R07.9 Chest pain, unspecified (principal); J06.9 Acute upper respiratory infection, unspecified; B97.89 Other viral agents as the cause of diseases classified elsewhere; R11.2 Nausea with vomiting, unspecified; R19.7 Diarrhea, unspecified; M79.10 Myalgia, unspecified site; Z88.8 Allergy status to other drugs, medicaments and biological substances
CPT/HCPCS: 93005; 99285; 96374; 36415; 82553; 82550; 84703; 85025; 80053; 81001; 84484; 71045; 93010; J1885